=== PATIENT | male | born 1950 | race Hispanic/Latino ===

== ENCOUNTER 2021-11-08 13:36 | Emergency (ER) | payer MEDICARE, MEDICAID ==
[2021-11-08] MEDS ORDERED: Ondansetron ODT 4 MG TAB ONE (14:10)
[2021-11-08] MEDS ORDERED: Dicyclomine 20 MG/2 ML VIAL ONE (14:11)
== END 2021-11-08 15:04 | disposition home or self-care (01) ==
LOC: CSHERS 13:36
DX: R11.2 Nausea with vomiting, unspecified (principal); R10.9 Unspecified abdominal pain; F17.200 Nicotine dependence, unspecified, uncomplicated
CPT/HCPCS: 96372; 99283; Q0162